=== PATIENT | male | born 1950 | race Caucasian/White ===

== ENCOUNTER 2019-07-21 03:09 | Observation (INO) | payer BC, SELFPAY ==
[2019-07-21] VITALS (8 sets, daily range): BP systolic 146–171; BP diastolic 78–96; PULSE 54–68; RESP 12–16; TEMP 36.7–36.9; O2SAT 96–98; BMI 33.8; BMI 33.9
--- NOTE | 2019-07-21 02:37 | EKG12_ITS ---
Test Reason : CP ADMIT Blood Pressure : / mmHG Vent. Rate : 063 BPM Atrial Rate : 063 BPM P-R Int : 218 ms QRS Dur : 086 ms QT Int : 440 ms P-R-T Axes : 023 -07 -08 degrees QTc Int : 450 ms Sinus rhythm with 1st degree A-V block Otherwise normal ECG Confirmed by SHAHAB PRINCE, MATA ([id number]), movie editor D[place]MA [place] ([id number] on 07/24/2019 3:29:40 PM Referred By: DR RAYA Confirmed By:MATA GUDINO MD
--- NOTE | 2019-07-21 04:07 | PCM.HP.STD ---
Problem List (1) Chest pain Status: Acute (2) HTN (hypertension) Status: Chronic History of Present Illness Date of Admission: 07/21/19 Chief Complaint: chest pain The patient is a 68 year old M with a significant history of hypertension; and tobacco abuse who was transferred from [facility] because of chest pain. Per emergency department doctor at [facility] patient has been at emergency department for 2 times for chest pain so emergency department doctor thought that patient may need a stress test. On presentation patient reports that the main reason why he has been at [facility] was for labile blood pressure. He reports that his lisinopril was adjusted from 20 mg daily to 30 mg daily. He reported his blood pressure still remained labile. Patient admitted that the two times that he was at [facility] he complained of chest pain. Indeed he characterizes pain as chest discomfort. He rated the pain at a 2. Reportedly the discomfort has been going on and off. He denies any nausea or vomiting or diaphoresis. He denies any shortness of breath. He denies any aggravating factor to the chest pain. He reports that after he works out on a treadmill his chest discomfort improves. The chest pain is nonradiating. Emergent department doctor discussed the case with Dr. Manuel, psychological tests sales agent who agreed that stress test be considered for patient. Past Medical History Past Medical History (Chronic Problems): Chronic Problems HTN (hypertension) (Chronic) Allergies morphine Allergy (Verified 07/21/19 02:25) Nausea Home Medications: Ambulatory Orders Medication Instructions Recorded Aspirin 81 mg PO DAILY 07/21/19 Lisinopril 30 mg PO DAILY 07/21/19 Omeprazole 20 mg PO DAILY 07/21/19 hydroCHLOROthiazide 12.5 mg PO DAILY 07/21/19 [Hydrochlorothiazide] Surgical History: - - Achilles tendon surgery Smoking Status: Current some day smoker Tobacco Use: Cigars - *Family History Maternal History Items: Stroke Paternal History Items: - - Denies pertinent medical history Review of Systems Constitutional: Denies: Chills, Fever, Weight Change HEENT: Denies: Head Aches, Sinus Congestion, Sinus Drainage Cardiovascular: Reports: Chest Pain. Denies: Palpitations Respiratory: Denies: Cough, Shortness of breath at rest, Sputum production Gastrointestinal: Denies: Abdominal Pain, Nausea, Vomiting Genitourinary: Denies: Dysuria Musculoskeletal: Denies: Joint Pain, Joint Tenderness Skin: Denies: Rash, Wounds Neurological: Denies: Numbness, Tingling, Focal weakness Psychiatric: Denies: Anxiety, Depression, Homicidal Ideations, Suicidal Ideations Hematologic/ Lymphatic: Denies: Easy Bruising, Easy Bleeding VTE Information - Inpt Only VTE Present on Admission: No VTE Mechan Device Prophylaxis: SCD's VTE Pharm Prophylaxis ordered?: No Patient Problems: Active and Suspected Problems Chest pain (Acute) - Physical Exam Vitals/I&O's: Vital Signs Temp Pulse Resp BP Pulse Ox 98.1 F 54 L 12 156/96 H 98 07/21/19 02:41 07/21/19 02:41 07/21/19 02:41 07/21/19 03:34 07/21/19 02:41 Oxygen Delivery Method Room Air Weight: 113.3 kg Body Mass Index (BMI) 33.8 Intake and Output for Last 24 Hours 07/19/19 07/20/19 07/21/19 23:59 23:59 23:59 Intake Total 0 / 0 Balance 0 / 0 General: Alert, Oriented x3, Cooperative HEENT: Atraumatic, PERRLA, EOMI, Normocephalic Neck: Supple, No JVD, Negative Carotid Bruits Lungs: Clear to auscultation, Normal air movement Cardiovascular: Regular rate, No murmurs Abdomen: Bowel Sounds Present, Soft, Non Tender Extremities: No edema, Capillary Refill Less than 3 Seconds Skin: No rashes, No breakdown Musculoskeletal: No Tenderness to Palpation of Joints or Extremities Neurological: Cranial nerves II-XII grossly intact Psych/Mental Status: Normal Affect, Appropriate Laboratory Results 07/21/19 03:00: Troponin I < 0.015 Current Medications Acetaminophen (Tylenol) 650 mg PO Q6H PRN PRN PRN Reason: Pain Score 1-10/Temp > 100.7 F Aspirin (Aspirin, Baby) 81 mg PO DAILYCM [place] Dextrose (D50w Syringe) 0 gm IV X1 PRN; Protocol PRN Reason: Hypoglycemia Glucagon () 1 mg IM .X1 PRN PRN Reason: Hypoglycemia Hydralazine HCl (Apresoline Iv) 5 mg IV Q4H PRN PRN PRN Reason: SBP > 160 OR DBP > 120 Hydrochlorothiazide () 12.5 mg PO DAILY [facility] Lisinopril (Zestril) 30 mg PO DAILY [facility] Ondansetron HCl (Zofran) 4 mg IV Q8H PRN PRN PRN Reason: NAUSEA/VOMITING Pantoprazole Sodium (Protonix) 20 mg PO DAILY [facility] Sodium Chloride () 10 - 40 ml IV UD PRN PRN Reason: SALINE FLUSH Assessment/Plan All Active Problems Chest pain (Acute) The patient is a 68 year old M with a significant history of hypertension who was transferred from [facility] because of chest pain. Chest pain Place on a monitored bed at PCU CXR; d-dimer; electrolytes and CBC at outside hospital ED was unremarkable. EKG shows accelerated junctional at outside hospital. ASA 81 mg p.o. daily continued We will check lipid panel. Serial cardiac enzymes Stat EKG as needed for chest pain Stress test in the AM if the cardiac enzymes are negative Hypertension Blood pressure was not within goal on presentation. Lisinopril and hydrochlorothiazide continued. PRN hydralazine. Trend blood pressure and adjust blood pressure medication as necessary. Obesity: BMI of 33.9. Complicates care. Recommend lifestyle modifications. Tobacco abuse: Counseled. Declined nicotine patch. DVT prophylaxis SCD OBSV E&M: 94721 Initial observation care L2
[2019-07-21] MEDS: Lisinopril 10 MG Tablet 30 MG PO (05:48)
[2019-07-21] MEDS: Pantoprazole Sodium 20 MG Tablet PO (05:49)
[2019-07-21] MEDS: Aspirin 81 MG TAB.CHEW PO (05:49)
[2019-07-21] MEDS: 0.9% Saline Lock 10 ML Syringe IV (05:49)
[2019-07-21] MEDS: hydroCHLOROthiazide 12.5mg 12.5 MG PO (05:49)
[2019-07-21 06:37] LABS: Cholesterol 168 mg/dL (200); High Density Lipoprotein 31 mg/dL; Triglycerides 178 mg/dL; Very Low Density Lipoprotein 36 mg/dL (5-40)
--- NOTE | 2019-07-21 11:43 | STRESSREP_ITS ---
Stress Test Report Date: 07-21-2019 Procedure: Pharmacologic stress nuclear imaging study Indications: Chest pain Consent: Per the patient Procedure: The patient underwent pharmacologic (Regadenoson) evaluation with a peak heart rate of 102 beats per minute (66 %predicted maximal heart rate) and a peak blood pressure of 174/92 mmHg. The baseline ECG demonstrated normal sinus rhythm. The peak pharmacologic ECG demonstrated no obvious ECG changes. There were no cardiac dysrhythmias pretest, during pharmacologic infusion, or recovery. There was no complaint of chest discomfort during pharmacologic infusion or recovery. The examination was discontinued secondary to completion of protocol. Impression: 1. Pharmacologic (Regadenoson) evaluation 2. Peak pharmacologic ECG with no obvious ECG changes. 3. There were no cardiac dysrhythmias pretest, during pharmacologic infusion, or recovery. 4. Nuclear images pending Myocardial perfusion imaging study: Technique: The patient was injected with 15.0 millicuries of technetium 99m Cardiolite and subsequently rest SPECT Cardiolite nuclear imaging was obtained in the horizontal long, vertical long, and short axis views. The patient underwent pharmacologic (Regadenoson) evaluation with a peak heart rate of 102 beats per minute (66 % percent predicted maximal heart rate) and a peak blood pressure of 174/92 mmHg. The patient was injected with 45.0 millicuries of technetium 99m Cardiolite and subsequently stress SPECT Cardiolite nuclear imaging was obtained in the horizontal long, vertical long, and short axis views. A gated Cardiolite study at peak stress was obtained. Interpretation: Rest and stress SPECT Cardiolite nuclear imaging status post realignment, normalization, and attenuation correction demonstrate relative uniform tracer uptake and myocardial perfusion appearing within normal limits. There is end systolic thickening and brightening. The gated Cardiolite study demonstrates myocardial thickening and inward wall motion. The reported LVEF is 75 %. Impression: 1. Rest and stress SPECT Cardiolite nuclear imaging demonstrate relative uniform tracer uptake and myocardial perfusion appearing within normal limits. 2. The gated Cardiolite study reports an LVEF of 75 %. This note was generated with [employer] software. It may contain incorrect words, spelling, and punctuation that were not noted in checking the note before signing.
--- NOTE | 2019-07-21 11:56 | PCM.DC ---
- Discharge Diagnoses Current Active Problems: Current Active and Chronic Problems Chest pain (Acute) HTN (hypertension) (Chronic) You will use the following diet at home:: No restrictions Your food should be the consistency of: Regular Your liquids should be the consistency of: Regular/Thin Discharge Activity: Return to Normal Activity Weight Bearing Status: Full weight bearing Allergies/Adverse Reactions: Allergies morphine Allergy (Verified 07/21/19 02:25) Nausea Medications to take at Discharge Amlodipine Besylate [Norvasc] 5 mg PO DAILY #30 tab 07/21/19 Lisinopril 30 mg PO DAILY 07/21/19 Omeprazole 20 mg PO DAILY 07/21/19 hydroCHLOROthiazide [Hydrochlorothiazide] 12.5 mg PO DAILY 07/21/19 The following prescriptions were given: Amlodipine Besylate [Norvasc] 5 mg PO DAILY #30 tab Transmission Status: Pending to [facility]/pharmacy #[id number] Primary Care Physician: Olvin Pettit DO [Primary Care Provider] - Please follow up with your Primary Care Physician in: [place] 7-10 DAYS Test Results: Test results from this visit will be discussed in further detail at your follow-up appointment, if applicable.
--- NOTE | 2019-07-21 17:40 | PCM.DC.SUM ---
Discharge Date and Diagnosis Date of Admission: 07/21/19 Date of Discharge: 07/21/19 - Primary Discharge Diagnosis #1 musculoskeletal chest pain #2 essential hypertension - Secondary Discharge Diagnosis Chronic Problems HTN (hypertension) (Chronic) Hospital Course and Treatment Operations: None Procedures: Nuclear stress test Summary of Care Provided: The patient is a 68 year old M who was directly placed into observation status on PCU after being transferred from the emergency room at [facility] where the patient was seen for evaluation of chest pain. Patient's troponin was normal, EKG showed no evidence of injury pattern. Patient underwent an exercise nuclear stress test on 07/21/2019 which resulted as negative for reversible ischemia. On 07/21/2019, patient was seen and examined: On examination he appeared in good health and spirits. Vital signs as documented. Skin warm and dry and without overt rashes. Neck without JVD, neck was supple, trachea midline, thyroid was normal. Lungs clear bilaterally, normal air movement was noted. Heart exam notable for regular rhythm, normal sounds and absence of murmurs, rubs or gallops. Abdomen unremarkable and without evidence of organomegaly, masses, or abdominal aortic enlargement. Bowel sounds are present, abdomen is not distended. Extremities nonedematous, no cyanosis was noted, no clubbing was noted. Neuro: Cranial nerves II through XII are grossly intact, no focal motor deficits were noted, sensation to light touch and pinprick intact, motor exam 5/5 throughout. Psych: Patient is alert and oriented x3, he does not appear anxious or depressed, he does not appear agitated. Patient was discharged in stable condition on 07/21/2019. - Physical Exam Vitals/I&O's: Vital Signs Temp Pulse Resp BP Pulse Ox 98.5 F 68 16 164/78 H 98 07/21/19 08:19 07/21/19 08:19 07/21/19 08:19 07/21/19 08:19 07/21/19 08:19 Oxygen Delivery Method Room Air Weight: 113.3 kg Body Mass Index (BMI) 33.8 Intake and Output for Last 24 Hours 07/19/19 07/20/19 07/21/19 23:59 23:59 23:59 Intake Total 240 / 240 Balance 240 / 240 Laboratory Results 07/21/19 03:00: Troponin I < 0.015 07/21/19 05:48: Troponin I < 0.015, Triglycerides 178, Cholesterol 168, LDL Cholesterol 101, VLDL Cholesterol 36, HDL Cholesterol 31 L 07/21/19 08:15: Troponin I < 0.015 Discharge Activity: Return to Normal Activity Weight Bearing Status: Full weight bearing Home Medications: Medications to take at Discharge Amlodipine Besylate [Norvasc] 5 mg PO DAILY #30 tab 07/21/19 Lisinopril 30 mg PO DAILY 07/21/19 Omeprazole 20 mg PO DAILY 07/21/19 hydroCHLOROthiazide [Hydrochlorothiazide] 12.5 mg PO DAILY 07/21/19 Following Prescrptions Were Given to Patient: Amlodipine Besylate [Norvasc] 5 mg PO DAILY #30 tab Transmission Status: Received by [facility]/pharmacy #[id number] Primary Care Physician: Olvin Pettit DO [Primary Care Provider] - Please follow up with your Primary Care Physician in: [place] 7-10 DAYS Disposition: Home Minutes spent on discharge:: 30 Patient Condition:: Stable Medical Necessity - Tobacco Use Smoking Status: Current some day smoker Tobacco Use: Cigars Meaningful Use Info Meaningful Use Diagnoses (Choose all that apply): None applicable OBSV E&M: 32062 Observ/hosp same date L3
== END 2019-07-21 11:57 | disposition home or self-care (01) ==
PROVIDERS: Admitting Provider Hospitalist; PCP Preventive Medicine Occupational Medicine; Visit Provider Internal Medicine
DX: R07.89 Other chest pain (principal); I10 Essential (primary) hypertension; Z79.899 Other long term (current) drug therapy; Z79.82 Long term (current) use of aspirin; F17.290 Nicotine dependence, other tobacco product, uncomplicated; E66.9 Obesity, unspecified; Z68.33 Body mass index [BMI] 33.0-33.9, adult; I44.0 Atrioventricular block, first degree
CPT/HCPCS: 36415; 78452; 80061; 84484; 93005; 93017; 99218; 99406; A9500; A4216; G0378; J2785